=== PATIENT | male | born 1970 | race Caucasian/White ===

== ENCOUNTER 2016-10-31 09:30 | Emergency (ER) | payer MEDICAID ==
[~2016-10-31] VITALS: Ht 177.8 cm; Wt 68.2 kg
[2016-10-31] MEDS ORDERED: LIB5 PO (10:33)
[2016-10-31 11:11] LABS: GLUCOSE,POINT OF CARE 109 MG/DL (70-110)
[2016-10-31] MEDS ORDERED: ChlordiazePOXIDE HCL 25 MG CAPSULE PO ONE (12:15)
[2016-10-31 13:04] VITALS: BP 126/87
== END 2016-10-31 13:46 | disposition home or self-care (01) ==
LOC: EMS 09:32
DX: F10.239 Alcohol dependence with withdrawal, unspecified (principal); Z76.0 Encounter for issue of repeat prescription; F12.90 Cannabis use, unspecified, uncomplicated; F17.210 Nicotine dependence, cigarettes, uncomplicated; Y90.9 Presence of alcohol in blood, level not specified
CPT/HCPCS: 82962; 99283